=== PATIENT | male | born 1945 | race Asian ===

== ENCOUNTER 2017-01-10 06:10 | Day surgery (SDC) | payer OTHER ==
[2017-01-01 15:30] VITALS: BMI 25.8
[2017-01-10] MEDS ORDERED: LIDOCAINE HCL 0.5% EPINEPHRINE 1:200,000 50 ML VIAL IJ ONE (07:10)
[2017-01-10] MEDS ORDERED: BUPIVACAINE HCL/PF 0.5% (5MG/ML) 10 ML VIAL ONE (07:10)
[2017-01-10] MEDS ORDERED: SUCCINYLCHOLINE CHLORIDE 200 MG/10 ML VIAL ONE (07:55)
[2017-01-10] MEDS ORDERED: PROPOFOL 20 ML ONE (07:55)
[2017-01-10] MEDS ORDERED: MIDAZOLAM HCL 2 MG/2 ML SINGLE DOSE VIAL ONE (07:55)
[2017-01-10] MEDS ORDERED: LIDOCAINE HCL 2% (20ML MULTI-DOSE VIAL) NR ONE (07:55)
[2017-01-10] MEDS ORDERED: ACETAMINOPHEN 1000 MG/100 ML VIAL (NON FORMULARY) IVPB PRN (08:04)
[2017-01-10] MEDS ORDERED: ONDANSETRON 4 MG/2 ML VIAL IVPUSH PRN (08:04)
[2017-01-10] MEDS ORDERED: oxyCODONE HCL 5 MG TABLET PO PRN (08:04)
[2017-01-10] MEDS ORDERED: DESFLURANE GAS 240 ML BOTTLE IH ONE (08:12)
[2017-01-10] MEDS ORDERED: LACTATED RINGERS SOLUTION 1,000 ML IV SCH (08:15)
[2017-01-10] MEDS ORDERED: DEXAMETHASONE SOD PHOSPHATE 4 MG/1 ML VIAL ONE (08:51)
--- NOTE | 2017-01-10 08:59 | HP ---
[facility]ellite [facility] - Chief Complaint Chief Complaint: right knee pain - Past Medical History Allergies/Adverse Reactions: Allergies Allergy/AdvReac Type Severity Reaction Status Date / Time latex Allergy Intermediate Itching Verified 04/04/12 09:38 - Current Medications Current Medications: Home Medications Medication Instructions Recorded Valsartan [Diovan] 80 mg PO HS 04/04/12 Oxycodone HCl/Acetaminophen 1 - 2 tab PO Q6H #30 tab MDD 8 01/10/17 [Percocet 5-325 mg Tablet -] Satellite Physical Exam - Physical Examination General Appearance: Well Nourished, Well Developed, Alert & Oriented x3 ENT: Clear Lung: Normal air movement Heart: Regular rate & rhythm Extremities: Other (right knee- + swelling, + ttp, decr rom, + mcmurrays, nvi MRI + lmt) Neurological: Intact, Alert, Oriented Satellite Impression/Plan - Impression/Plan Impression: right knee internal derangement Operative Procedure: right knee arthroscopy Date to be Performed: 01/10/17
--- NOTE | 2017-01-10 09:01 | OP ---
Operative Note - Note: Operative Date: 01/10/17 ([facility]) Pre-Operative Diagnosis: right knee internal derangement Operation: right knee arthroscopy with PLM Post-Operative Diagnosis: Same as Pre-op Surgeon: Levi Akhtar Anesthesiologist/FIRE CHIEF'S AIDE: Mira Roach Anesthesia: General, Local Specimens Removed: shavings Estimated Blood Loss (mls): 5 Operative Report Dictated: Yes
[2017-01-10] MEDS ORDERED: ACETAMINOPHEN INJECTION 100 ML IVPB ONE (09:54)
[2017-01-10 10:33] VITALS: PULSE 50
--- NOTE | 2017-01-10 10:57 | OP ---
DATE OF OPERATION: 01/10/2017 PREOPERATIVE DIAGNOSIS: Internal derangement, right knee. POSTOPERATIVE DIAGNOSIS: Internal derangement, right knee. PROCEDURE: Right knee arthroscopy with partial lateral meniscectomy. SURGICAL ATTENDING: Levi Akhtar MD ANESTHESIA: General with LMA. CLOSURE: 4-0 nylon. COMPLICATIONS: None. CONDITION: To recovery room in stable condition. DESCRIPTION OF OPERATIVE PROCEDURE: Patient was taken to the operating room on January 10, 2017. General anesthesia with LMA was administered by the anesthesiologist. Right lower extremity was prepped and draped in the usual sterile fashion. The supralateral and medial lateral infrapatellar portal sites were infiltrated with 1% Xylocaine with epinephrine. Supralateral portal was made with a 15 blade blunt trocar. The knee was aspirated and inflated with a cocktail of 10 mL of 1% Xylocaine and 10 mL of 0.5% Marcaine and 20 mL of arthroscopic saline. Medial and lateral infrapatellar portals were then made with a 15 blade, followed by a blunt trocar. The scope was placed in the lateral infrapatellar portal and up into the suprapatellar pouch. Pouch was visualized to be clean. The medial and lateral gutters were visualized to be clean. The undersurface of the patella and trochlea were visualized to be intact. With valgus stress on the knee, the medial compartment was entered and medial meniscus was visualized, probed, and found to be intact. The medial femoral condyle was run and found to be intact, as was the medial tibial plateau. At 90 degrees the ACL and PCL were visualized and probed and found to be intact. In the figure four position, the lateral compartment was entered. Lateral meniscus had a large, complex tear of almost the entire lateral meniscus and displaced into the knee joint. This was debrided back to smooth and stable meniscal remnants with a small remnant posterior and anterior. Rest of the meniscus was debrided. As there was some punctate bleeding on the most-lateral meniscal margins, an ArthroCare device was used to cauterize any of the bleeders. The pressure was allowed to diminish into the knee to identify any bleeders in this region, and then, they were further cauterized. The knee was then flushed out with copious amounts of saline, then drained. The portals were closed using 4-0 nylon. Prior to pulling the outflow portal, 20 mL of 0.5% Marcaine was infused through that trocar, and then, the trocar was removed. Sterile pressure dressing was placed over the knee. Patient was awakened from anesthesia and transferred to recovery room in stable condition. No complications. Estimated blood loss was negligible. LEVI AKHTAR M.D. [id number]
[2017-01-10 11:13] VITALS: TEMP 97.6
[2017-01-10 11:20] VITALS: BP 147/78
--- NOTE | 2017-01-11 13:00 | PATH ---
Surgical Pathology Report Patient Name: JAMEEL MCNEIL [facility]. Rec. #: [id number] /Age/Gender: 1945 (Age: 71) / M Account: [id number] Location: [facility] SURGICAL Taken: 01/10/2017 Received: 01/10/2017 Reported: 01/11/2017 Physicians: Levi Akhtar M.D. Specimen(s) Received RIGHT KNEE SHAVINGS Clinical History Torn meniscus, right knee Final Diagnosis SOFT TISSUE, RIGHT KNEE, ARTHROSCOPIC SHAVINGS: SYNOVIUM AND FIBROCARTILAGE WITH MYXOHYALINE DEGENERATION. Electronically Signed Joshua Childers M.D. Gross Description Received in formalin, labeled "right knee shavings" is a 3.5 x 2.0 x 2.0 cm aggregate of pena-yellow soft tissue fragments. A banking representative portion is submitted in one cassette. AF/01/10/2017 final/01/10/2017
--- NOTE | 2017-01-12 16:15 | EKG ---
Test Reason : Blood Pressure : / mmHG Vent. Rate : 054 BPM Atrial Rate : 054 BPM P-R Int : 150 ms QRS Dur : 094 ms QT Int : 452 ms P-R-T Axes : 002 034 017 degrees QTc Int : 428 ms SINUS BRADYCARDIA OTHERWISE NORMAL ECG Confirmed by MD COSMO, RONAL ([id number]) on 01/12/2017 4:15:29 PM Referred By: MOR LOYD Confirmed By:RONAL WILBURN MD
== END 2017-01-10 11:23 | disposition home or self-care (01) ==
LOC: JASU-SURG 06:10 → EDSTATUS 08:00 → JASU-SURG 11:23
PROVIDERS: ATTEND Orthopaedic Surgery
PROC: 0SBC4ZZ Excision of Right Knee Joint, Percutaneous Endoscopic Approach (ICD-10-PCS; principal; 2017-01-10 08:00)
DX: M23.300 Other meniscus derangements, unspecified lateral meniscus, right knee (principal)
CPT/HCPCS: 88304-TC; 93005; 93010; 94760